=== PATIENT | female | born 1985 | race Caucasian/White ===

== ENCOUNTER 2017-03-27 10:25 | Emergency (ER) | payer OTHER ==
[~2017-03-27] VITALS: Ht 167.6 cm; Wt 122.0 kg
[2017-03-27 10:44] VITALS: BP 120/81; PULSE 81; RESP 19; TEMP 98.2
[2017-03-27] MEDS ORDERED: IBUPROFEN 600 MG TAB PO ONE (10:45)
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
== END 2017-03-27 12:53 | disposition home or self-care (01) ==
LOC: NEPD 10:25
DX: R07.89 Other chest pain (principal); M54.2 Cervicalgia
CPT/HCPCS: 70490